=== PATIENT | male | born 1955 | race Caucasian/White ===

== ENCOUNTER 2019-02-09 13:12 | Emergency (ER) | payer SELFPAY ==
[~2019-02-09] VITALS: Ht 180.3 cm; Wt 89.9 kg
[2019-02-09 13:28] VITALS: BP 128/81
--- NOTE | 2019-02-09 14:00 | NUR ---
PT TO ED FOR CHRONIC NECK AND BACK PAIN. PT STATES HE IS SUPPOSED TO BE ON "CODEINE AND VALIUM, BUT THEY WON'T GIVE THEM TO ME ANYMORE." PT DENIES TRAUMA AND STATES HE HAS HAD SEVERE PAIN FOR "YEARS" BUTCAUSE IS UNKNOWN. PT DENIES ETOH, BUT IS + FOR ETOH ODOR. PT CONNECTED TO MONITORS. VSS. AWAITING EDMD ASSESSMENT.
--- NOTE | 2019-02-09 14:00 | NUR ---
pt moved to room 30, report given to CEZAR Costa.
--- NOTE | 2019-02-09 14:10 | NUR ---
PT IS GENERALLY UNCOOPERATIVE, ARGUMENTATIVE AND CONTINUES TO INTERRUPT RN TO MAKE NON NECESSARY REQUESTS. PT EDUCATED THAT RN'S PRIORITY IS TO HELP HIM TO FEEL BETTER AND THAT CERTAIN TASKS MUST BE COMPLETED PRIOR TO MD ASSESSMENT. THIS RN STATES THAT ITEMS WILL BE PROVDED SOON HIGHER PRIORITY TASKS ARE COMPLETED. PT STATES UNDERSTANDING AND THEN CONTINUES TO MAKE NON NECESSARY REQUESTS. DR. CORTEZ TO BS AT THIS TIME.
--- NOTE | 2019-02-09 14:15 | NUR ---
Dr. Turpin to bs. pt immediately requesting a script for codeine. pt then stated, "just disconnect me. i'm getting out of here," prior to md assessment. pt continually verbally aggressive to staff. pt disconnected from all monitors and dressed self. pt escorted to lobby by this RN.
== END 2019-02-09 14:23 | disposition left against medical advice (07) ==
LOC: ED 14:17
DX: M54.2 Cervicalgia (principal); M54.9 Dorsalgia, unspecified; Z76.0 Encounter for issue of repeat prescription
CPT/HCPCS: 99281